=== PATIENT | male | born 1950 | race African-American/Black ===

== ENCOUNTER 2018-05-09 09:45 | Outpatient (CLI) ==
--- NOTE | 2018-05-09 12:01 | CT ---
Exam: CT lumbar spine HISTORY: Low back pain with radiculopathy. Procedures: 3 mm contiguous axial images were obtained through the lumbar spine without the use of c ontrast. Sagittal and coronal reformatted images were also created and reviewed. Findings: There are no prior studies of the lumbar spine at this institution. There is multilevel m ild degenerative disc disease and moderate facet arthropathy with no acute fracture or listhesis. 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 Mild degenerative findings are noted in the sacroiliac joints. Limited visualization of the adjacent soft tissues demonstrates atherosclerotic d isease without aortic aneurysm. There is no paraspinal fluid collection. Individual disc levels are evaluated as follows At T12-L1 there is a minimal disc bulge without central canal stenosis or significant neural foramina l stenosis. At L1-2 there is a minimal disc marginal osteophyte complex without central canal stenosis or signifi cant neural foraminal stenosis. At L2-3 there is a mild circumferential disc bulge which combines with facet and ligamentous hypertro phy to result in narrowing of the bilateral lateral recesses. There is no midline central canal sten osis. Mild neural foraminal stenosis is noted bilaterally. At L3-4 there is a mild disc marginal osteophyte complex which combines with marked facet and ligamen tous hypertrophy to result and central canal stenosis to approximately 3 mm. Severe neural foraminal stenosis is noted on the right with moderate neural foraminal stenosis on the left. At L4-5 there is a disc marginal osteophyte complex which reduces the AP diameter of the spinal canal to 10 mm. There is severe neural foraminal stenosis on the left and moderate neural foraminal steno sis on the right. At L5-S1 there is a mild disc bulge which reduces the AP diameter of the spinal canal to 8 mm. There is severe neural foraminal stenosis bilaterally. Impressions: No acute fracture or listhesis in the lumbar spine. Severe central spinal canal stenosis to approximately 3 mm at L3-4 secondary to disc marginal osteoph yte complex combining with marked facet and ligamentous hypertrophy. Mild central canal stenosis to 8 mm at L5-S1 and 10 mm at L4-5. Severe neural foraminal stenosis bilaterally at L5-S1, on the right and L3-4 and on the left at L4-5. Moderate neural foraminal stenosis on the left at L3-4 and on the right at L4-5. Consider MRI of the lumbar spine for more sensitive evaluation.
== END 2018-05-09 09:46 | disposition home or self-care (01) ==
LOC: RAD 09:45
PROVIDERS: ATTEND Internal Medicine
DX: M54.5 Low back pain (principal)

== ENCOUNTER 2018-05-24 07:05 | Outpatient (CLI) ==
--- NOTE | 2018-05-24 08:37 | MRI ---
EXAM: MRI of the lumbar spine without contrast CLINICAL HISTORY: Low back pain TECHNIQUE: Multiplanar imaging of the lumbar spine was performed using T1, T2, inversion recovery se quences. Comparison 05/09/2018 CT scan of the lumbar spine. FINDINGS: There is no bone marrow edema. The paraspinal soft tissues are normal. The lumbar spinal cord demonstrates normal signal on T2W images. The conus medullaris is located at the inferior aspe ct of the L2 level. Five lumbar-type vertebral bodies are seen. Segmental analysis: T12-L1: The central canal and neural foramina appear patent. L1-L2: There is mild disc bulge resulting in mild narrowing of the central canal and neural foramina . L2-L3: There is diffuse disc bulge and mild facet arthropathy and enlargement of the posterior ligam ent flavum resulting in moderate to severe central canal lateral recess stenosis. The thecal sac is reduced to approximately 4 mm AP. There is loss of CSF seen within the thecal sac. There is moderat e to severe left and moderate right foraminal stenosis. L3-L4: There is disc bulge and mild facet arthropathy resulting in moderate central canal stenosis. The thecal sac is reduced to 6.7 mm AP. There is mild loss of CSF seen within the thecal sac. Ther e is mild to moderate bilateral foraminal stenosis. L4-L5: There has been previous laminectomy. The central canal and lateral recesses appear adequatel y patent. There is facet arthropathy and disc bulge resulting in moderate to severe left and moderat e right foraminal stenosis. L5-S1: There is mild disc bulge and moderate facet arthropathy. The central canal and lateral reces ses appear patent. There has been previous laminectomy. There is moderate to severe bilateral yfn inal stenosis. IMPRESSION: The patient has had previous laminectomy seen at L4-L5 and L5-S1. There is disc bulge and facet joint arthropathy resulting in significant central canal stenosis at th e L3-L4 and L2-L3 disc spaces as described above. Bilateral multilevel foraminal stenosis seen from the L2 down to the L5 level. No evidence of acute compression fracture. There is no spondylolisthesis.
== END 2018-05-24 07:06 | disposition home or self-care (01) ==
LOC: RAD 07:05
PROVIDERS: ATTEND Internal Medicine
DX: M54.5 Low back pain (principal)